=== PATIENT | male | born 1940 | race Caucasian/White ===

== ENCOUNTER 2016-08-01 08:47 | Emergency (ER) | payer MEDICARE, BC ==
--- OUTSIDE RECORDS SUMMARY | 2016-08-01 09:29 | XMS REPORT | Continuity of Care Document ---
:1940 Author Organization [facility] ([facility]) Address [address] [place] [address] Phone [phone] Care Team Providers Name Role Phone Jamie Ann Primary Care Provider [phone] Source Comments This disclosure is being made pursuant to the Care Everywhere program, applicable federal and state laws, and may not contain all informaitonavailable regarding this patient.[facility] ([facility]) Active Allergies and Adverse Reactions No Known Allergies Current Medications Prescription Sig. Disp. Refills Start Date End Date Status omeprazole (PRILOSEC) 20 mg Take 20 mg by Active extended release capsule mouth daily. simvastatin (ZOCOR) 20 mg Take 20 mg by Active tablet mouth every evening. aspirin 81 mg chewable Take 81 mg by Active tablet mouth daily. omega-3 fatty acids-vitamin Take 1,000 mg by Active E (FISH OIL) 1,000 mg mouth daily. capsule levothyroxine 125 mcg Take 125 mcg by Active tablet mouth every evening. cholecalciferol (VITAMIN Take 400 Units by Active D3) 400 unit tablet mouth daily. ascorbic acid (VITAMIN C) Take 500 mg by Active 500 mg tablet mouth daily. potassium 99 mg tablet Take 99 mg by Active mouth daily. OTC tablet vitamin E 400 unit capsule Take 400 Units by Active mouth daily. multivitamin with minerals Take 1 Tab by Active tablet mouth daily. Active Problems Problem Noted Date Malignant neoplasm of right kidney 11/15/2015 GERD (gastroesophageal reflux disease) 09/30/2013 Hypothyroidism 09/30/2013 Mixed hyperlipidemia 09/30/2013 Right kidney mass 09/28/2013 Renal mass 09/16/2013 Resolved Problems Problem Noted Date Resolved Date Postoperative nausea 09/30/2013 09/30/2013 Social History Tobacco Use Types Packs/Day Years Used Date Former Smoker Cigarettes 1.5 10 Quit: 10/22/1974 Smokeless Tobacco: Never Used Tobacco Cessation:Counseling Given: Yes Comments:41 years ago quit Alcohol Use Drinks/Week oz/Week Comments Yes 14 Glasses of wine 7.0 2 wine glasses per day Last Filed Vital Signs Vital Sign Reading Time Taken Blood Pressure 122/82 11/15/2015 1:44 PM CDT Pulse 71 11/15/2015 1:44 PM CDT Temperature 36.2 C (97.1 F) 11/15/2015 1:44 PM CDT Respiratory Rate 16 05/03/2015 2:15 PM [employer] Height 1.676 m (5' 6") 10/23/2015 9:14 AM CDT Weight 71.2 kg (156 lb 15.5 oz) 10/23/2015 9:14 AM CDT Body Mass Index 25.35 10/23/2015 9:14 AM CDT Oxygen Saturation 96% 10/23/2015 9:14 AM CDT Plan of Care Date Type Specialty Providers Description 10/23/2016 Appointment Cardiac Rehabilitation Eliana Nagy [address] [place] [address] [phone] (Fax) Chief Comp: Patient CrowjeanneReza MD [address] [place] [address] [phone] (Fax) Reported Reason For Visit 11/25/2016 Appointment Radiology Subj: Appointment Rescheduled 11/25/2016 Appointment Urology Mauri Stubbs MD Subj: Appointment [address] [facility] [place] [address] [phone] (Fax) Health Maintenance Due Date Last Done Comments Hepatitis B Vaccine (1 of 3 - Primary 1940 Series) Tdap Vaccine 1950 Td Vaccine 1957 Colonoscopy 03/31/1989 Zoster Vaccine 1999 Pneumococcal Vaccine (1 of 2 - PCV13) 2004 Influenza Vaccine: Seasonal (Season 09/24/2016 11/18/2014 (Previously Ended) completed) Lipid Disorder Screening 10/22/2020 10/23/2015 Results from Last 3 Months Not on file
--- NOTE | 2016-08-01 10:20 | ERNOTE ---
Time Seen by Provider: 08/01/16 09:10 Stated Complaint: COUGH, SINUS,BODY ACHES Presenting Symptoms:: cough Source: patient Exam Limitations: no limitations Immunizations: IMMUNIZATION HX Immunizations Up to Date Yes History of Influenza Vaccine Yes Hx Pneumococcal Vaccination Yes Allergies/Adverse Reactions: Allergies No Known Allergies Allergy (Verified 08/01/16 08:56) Home Medications: HOME MEDICATIONS Levothyroxine Sodium [Tirosint] 125 mcg PO DAILY 08/24/14 [Last Taken Unknown] Omeprazole [Prilosec] 20 mg PO DAILY 08/24/14 [Last Taken Unknown] Simvastatin [Zocor] 20 mg PO HS 08/24/14 [Last Taken Unknown] Ascorbic Acid [Vitamin C] 500 mg PO DAILY 08/01/16 [Last Taken Unknown] Aspirin 81 mg PO DAILY 08/01/16 [Last Taken Unknown] Fluticasone Propionate [Flonase] 1 spray NS DAILY #1 inhaler 08/01/16 [Last Taken Unknown] Multivitamin [Multivitamins] 1 each PO DAILY 08/01/16 [Last Taken Unknown] Potassium 99 mg PO DAILY 08/01/16 [Last Taken Unknown] [place] Oil/[place]-3 Fatty Acids [Fish Oil] 1,200 mg PO DAILY 08/01/16 [Last Taken Unknown] Vitamin E 400 unit PO DAILY 08/01/16 [Last Taken Unknown] - History of Present Ilness Narrative: Patient presents with cough, congestion and body aches for the last 48-72 hours. Patient was seen by a physician 2 days ago and started on doxycycline and he is taken 4 doses of this. Patient also complains of sinus tenderness and fullness. Timing: constant Severity: moderate Frequency/Possible Cause: Reports: no prior episodes Associated Symptoms: Reports: cough, nasal congestion Prior Treatment: Reports: recently seen, treated by physician Review of Systems - Review of Systems Constitutional: Present: See HPI EYE: Present: no symptoms reported ENT: Present: other - sinus pressure Respiratory: Present: cough Cardiology: Present: no symptoms reported Gastrointestinal/Abdominal: Present: no symptoms reported Genitourinary: Present: no symptoms reported Musculoskeletal: Present: no symptoms reported Skin: Present: no symptoms reported Neurological: Present: no symptoms reported Endocrine: Present: no symptoms reported Hematologic/Lymphatic: Present: no symptoms reported Psych: Present: no symptoms reported - Patient's Past Medical History Patient History - Medical: GERD, Hypothyroidism, Other Patient History - Cardiac/Respiratory: Hyperlipidemia Patient History - Cancer: No Hx of Cancer Patient History - Surgical Procedures: Colonoscopy, Other Patient History - Other: None - Family History Mother Family History - Medical: , Alzheimer's Disease Father Family History - Medical: - Social History Living Situations: home Abuse History: No History of abuse Psych History: No pertinent hx Smoking Status: Former smoker Alcohol Use: occasionally Drug Use: none - Immunizations Immunizations Up to Date: Yes Hx Pneumococcal Vaccination: Yes History of Influenza Vaccine: Yes Physical Exam - Physical Exam General Appearance: Present: wd/wn, alert, mild distress Eye Exam: Normal inspection: bilateral, PERRL: bilateral Ears, Nose, Throat: Present: sinus pain/drainage, normal pharynx Neck: Present: normal inspection, nontender Respiratory: Present: no respiratory distress, no accessory muscle use, chest nontender, other - fine coarse breath sounds Cardiovascular/Chest: Present: regular rate, rhythm, no murmur, normal peripheral pulses Gastrointestinal/Abdominal: Present: normal bowel sounds, nontender, nondistended, soft, no organomegaly Rectal Exam: Present: deferred Back Exam: Present: normal inspection, normal range of motion Extremity Exam: Present: normal inspection, non-tender, no edema, normal range of motion Neurological Exam: Present: alert, oriented, normal mood/affect Skin Exam: Present: normal color, warm/dry Lymphatic Exam: Present: no adenopathy ED Progress - Vital Signs Patient's Vital Signs:: I have reviewed the patient's vital signs. Vital Signs: Vital Signs 08/01/16 08:51 Temperature 37.2 C Pulse Rate 80 Respiratory 14 Rate Blood Pressure 120/79 O2 Sat by Pulse 99 Oximetry - X-Ray X-Ray #1 X-Ray: chest Interpretation: Reviewed by me - Progress/Reassessment Chief Complaint: Upper Respiratory Symptoms Plan - Plan Plan: Asians chest x-ray revealed what appears to be COPD, however the patient refused to have an influenza test done despite being somewhat worried that he might have influenza. He has been started on doxycycline which is a reasonable antibiotic for COPD and his sinusitis, he will be encouraged to continue on this antibiotic and follow-up with his family physician next week. Departure - Departure Clinical Impression: Sinusitis Qualifiers: Sinusitis location: unspecified location Chronicity: acute Recurrence: non- recurrent Qualified Code(s): J01.90 - Acute sinusitis, unspecified Clinical Impression: (Ruled Out): Upper respiratory infection Disposition: Home self-care Condition: Good Instructions: Sinusitis, Adult, [id number] Referrals: Jamie Ann DO [Primary Care Provider] - Prescriptions: Fluticasone Propionate [Flonase] 1 spray NS DAILY #1 inhaler
[2016-08-01 10:27] VITALS: BP 100/63
== END 2016-08-01 10:28 | disposition home or self-care (01) ==
LOC: ER 08:47
DX: J01.90 Acute sinusitis, unspecified (principal); K21.9 Gastro-esophageal reflux disease without esophagitis; E03.9 Hypothyroidism, unspecified; E78.5 Hyperlipidemia, unspecified

== ENCOUNTER 2016-08-18 01:25 | Emergency (ER) | payer MEDICARE, BC ==
[2016-08-18] MEDS ORDERED: ALBUTEROL SULFATE/IPRATROPIUM 3 ML NEBU IH ONE ×2 (01:54→01:55)
--- NOTE | 2016-08-18 02:00 | ERNOTE ---
Date of Service: 08/18/16 Time Seen by Provider: 08/18/16 01:52 Stated Complaint: CONGESTION,BRONCHITIS Presenting Symptoms:: cough, runny nose, other - post nasal drip Source: patient Exam Limitations: no limitations Immunizations: IMMUNIZATION HX Immunizations Up to Date Yes History of Influenza Vaccine Yes Hx Pneumococcal Vaccination Yes Allergies/Adverse Reactions: Allergies No Known Allergies Allergy (Verified 08/18/16 01:41) Home Medications: HOME MEDICATIONS Levothyroxine Sodium [Tirosint] 125 mcg PO DAILY 08/24/14 [Last Taken Unknown] Omeprazole [Prilosec] 20 mg PO DAILY 08/24/14 [Last Taken Unknown] Simvastatin [Zocor] 20 mg PO HS 08/24/14 [Last Taken Unknown] Ascorbic Acid [Vitamin C] 500 mg PO DAILY 08/01/16 [Last Taken Unknown] Aspirin 81 mg PO DAILY 08/01/16 [Last Taken Unknown] Fluticasone Propionate [Flonase] 1 spray NS DAILY #1 inhaler 08/01/16 [Last Taken Unknown] Multivitamin [Multivitamins] 1 each PO DAILY 08/01/16 [Last Taken Unknown] Potassium 99 mg PO DAILY 08/01/16 [Last Taken Unknown] [place] Oil/[place]-3 Fatty Acids [Fish Oil] 1,200 mg PO DAILY 08/01/16 [Last Taken Unknown] Vitamin E 400 unit PO DAILY 08/01/16 [Last Taken Unknown] Albuterol Sulfate [Proair Hfa] 1 - 2 puff IH Q4H PRN #1 inhaler 08/18/16 [Last Taken Unknown] Benzonatate [Tessalon Perle] 100 mg PO TID PRN #20 capsule 08/18/16 [Last Taken Unknown] - History of Present Ilness Narrative: 76 year old that has been having sinus congestion, post nasal drip, and productive coughing for three days. Notes pressure at the maxillary sinuses, and a mild headache that he has taken Excedrin for. No complaints of fever, chills or shortness of breath. He has similar symptoms 10 days ago and was seen at urgent care center and given Doxycycline which he took for about 10 days. Timing: getting worse Severity: mild Frequency/Possible Cause: Reports: occasional episodes Modifying Factors - Improves: Reports: nothing Modifying Factors - Worsens: Reports: nothing Associated Symptoms: Reports: denies symptoms Prior Treatment: Reports: recently seen Review of Systems - Review of Systems Constitutional: Present: no symptoms reported EYE: Present: no symptoms reported ENT: Present: See HPI Respiratory: Present: See HPI Cardiology: Present: no symptoms reported Gastrointestinal/Abdominal: Present: no symptoms reported Genitourinary: Present: no symptoms reported Musculoskeletal: Present: no symptoms reported Skin: Present: no symptoms reported Neurological: Present: no symptoms reported Endocrine: Present: See HPI Hematologic/Lymphatic: Present: no symptoms reported Psych: Present: no symptoms reported - Patient's Past Medical History Patient History - Medical: GERD, Hypothyroidism, Other Patient History - Cardiac/Respiratory: Bronchitis, Hyperlipidemia Patient History - Cancer: No Hx of Cancer Patient History - Surgical Procedures: Colonoscopy, Other Patient History - Other: None - Family History Mother Family History - Medical: , Alzheimer's Disease Father Family History - Medical: - Social History Living Situations: home Abuse History: No History of abuse Psych History: No pertinent hx Smoking Status: Former smoker Alcohol Use: occasionally Drug Use: none - Immunizations Immunizations Up to Date: Yes Hx Pneumococcal Vaccination: Yes History of Influenza Vaccine: Yes Physical Exam - Physical Exam General Appearance: Present: no apparent distress Eye Exam: Normal inspection: bilateral Ears, Nose, Throat: Present: normal pharynx, other - no tenderness at the maxillary sinuses Respiratory: Present: no respiratory distress, normal breath sounds, other - occasional dry cough Cardiovascular/Chest: Present: tachycardia Gastrointestinal/Abdominal: Present: nontender Back Exam: Present: normal inspection Extremity Exam: Present: normal inspection Neurological Exam: Present: alert, oriented Skin Exam: Present: normal color ED Progress - Vital Signs Patient's Vital Signs:: I have reviewed the patient's vital signs. Vital Signs: Vital Signs 08/18/16 01:35 Temperature 37.2 C Pulse Rate 116 H Respiratory 20 Rate Blood Pressure 121/94 O2 Sat by Pulse 95 Oximetry - X-Ray X-Ray #1 X-Ray: chest Interpretation: Interp. by me X-ray Comments: no acute disease - Progress/Reassessment Chief Complaint: Cough Progress:: Unchanged Progress Note-Subjective: 08/18/16 02:44 There was some improvement as per the patient after the neb treatment, although he was not too happy about doing the sinus rinse. The patient requested an additional nebulizer treatment. Departure - Departure Clinical Impression: URI (upper respiratory infection), Acute maxillary sinusitis Disposition: Home self-care Condition: Good Instructions: Upper Respiratory Infection, Adult, [id number], Sinus Rinse, [id number], Sinus Headache, [id number] Print Language: Mongolian Additional Instructions: Obtain a Netti pot and irrigate your sinuses as needed. Referrals: Jamie Ann DO [Primary Care Provider] - Prescriptions: Albuterol Sulfate [Proair Hfa] 1 - 2 puff IH Q4H PRN #1 inhaler PRN Reason: Shortness Of Breath Benzonatate [Tessalon Perle] 100 mg PO TID PRN #20 capsule PRN Reason: Cough
[2016-08-18] MEDS ORDERED: ALBUTEROL SULFATE 2.5 MG/3 ML VIAL.NEB IH ONE (02:39)
[2016-08-18] MEDS ORDERED: ALBUTEROL SULFATE 2.5 MG/0.5 ML VIAL.NEB IH ONE (02:45)
[2016-08-18 03:24] VITALS: BP 137/68
== END 2016-08-18 03:22 | disposition home or self-care (01) ==
LOC: ER 01:25
DX: J01.00 Acute maxillary sinusitis, unspecified (principal); K21.9 Gastro-esophageal reflux disease without esophagitis; E03.9 Hypothyroidism, unspecified; E78.5 Hyperlipidemia, unspecified